=== PATIENT | male | born 1995 | race Caucasian/White ===

== ENCOUNTER 2017-02-07 11:51 | Emergency (ER) | payer BC ==
[2017-02-07 12:31] VITALS: BP 147/90
--- NOTE | 2017-02-07 13:09 | UC ---
Dental HPI - HPI Summary HPI Summary: On night, he noticed a sore under his tongue. Thursday morning he attempted to drain with a pin and razor blade with no success. He has used salt- water rinses with some relief. He also complains that he has had nasal congestion since July. He went to see a doctor that told him he had seasonal allergies, and prescribed him Arminda-D. He took it for a week and could no longer afford it. He states that it did relieve some of his symptoms at the time. - History of Current Complaint Chief Complaint: UCDentalProblem Stated Complaint: ABCESS ON TONGUE Hx Obtained From: Patient Onset/Duration: Lasting Days Severity: Mild Aggravating: Nothing Alleviating: Other (see comments) - salt-water rinses - Allergies/Home Medications Allergies/Adverse Reactions: Allergies Allergy/AdvReac Type Severity Reaction Status Date / Time No Known Allergies Allergy Verified 10/21/16 16:51 PMH/Surg Hx/FS Hx/Imm Hx Previously Healthy: Yes Endocrine History Of: Denies: Diabetes, Thyroid Disease Cardiovascular History Of: Denies: Cardiac Disorders, Hypertension Respiratory History Of: Denies: COPD, Asthma GI/ History Of: Denies: Ulcer - Surgical History Surgical History: None - Family History Known Family History: Positive: Hypertension, Diabetes - aunt - Social History Lives: With Family Alcohol Use: Weekly Alcohol Amount: weekends Substance Use Type: None Smoking Status (MU): Heavy Every Day Tobacco Smoker Type: Cigarettes, eCigarettes Amount Used/How Often: 1/2 ppd - Immunization History Most Recent Influenza Vaccination: none Review of Systems Constitutional: Negative Skin: Negative Eyes: Negative ENT: Nasal Discharge - nasal congestion, Other - complains of sore under his tongue Respiratory: Negative Cardiovascular: Negative Gastrointestinal: Negative Genitourinary: Negative Motor: Negative Neurovascular: Negative Musculoskeletal: Negative Neurological: Negative Psychological: Negative All Other Systems Reviewed And Are Negative: Yes Physical Exam Triage Information Reviewed: Yes Appearance: Well-Appearing, No Pain Distress, Well-Nourished Vital Signs: Initial Vital Signs Temp 98.1 F 02/07/17 12:22 Pulse 73 02/07/17 12:22 Resp 18 02/07/17 12:22 BP 147/90 02/07/17 12:22 Pulse Ox 100 02/07/17 12:22 Vital Signs Reviewed: Yes Eye Exam: Normal Eyes: Positive: Conjunctiva Clear ENT: Positive: Pharynx normal. Negative: Nasal congestion, Nasal drainage, Tonsillar swelling, Tonsillar exudate Dental Exam: Other Dental: Positive: Other: - Small, whitish spot under tongue. No pain with palpation. No drainage. Neck exam: Normal Neck: Positive: Supple, Nontender Respiratory Exam: Normal Respiratory: Positive: Chest non-tender, Lungs clear, Normal breath sounds, No respiratory distress Cardiovascular Exam: Normal Cardiovascular: Positive: RRR, No Murmur Musculoskeletal Exam: Normal Neurological Exam: Normal Neurological: Positive: Alert Psychological Exam: Normal Skin Exam: Normal Dental Complaint Course/Dx - Course Course Of Treatment: Peridex rinse twice a day. Continue warm salt-water rinses. Zyrtec for complaints of nasal congestion. - Differential Dx/Diagnosis Differential Diagnosis/Dx: Other - Abscess Provider Diagnoses: Canker sore Discharge - Discharge Plan Condition: Stable Disposition: HOME Prescriptions: Cetirizine* [ZyrTEC 10 MG TAB*] 10 mg PO DAILY #30 tab Chlorhexidine MW 0.12% 473ML* [Peridex Mouth Wash 0.12%*] 15 ml SWISH SPIT BID # 1 btl Patient Education Materials: Canker Sores (ED) Print Language: ALBANIAN Referrals: No Primary Care Phys,NOPCP [Primary Care Provider] - Additional Instructions: This is most likely a canker sore. We will have the patient do a Peridex mouth rinse twice a day. Instructed to not irritate the area or attempt to remove. Warm salt water rinses are also encouraged. For his complaints of nasal congestion we will try Zyrtec.
== END 2017-02-07 13:07 | disposition home or self-care (01) ==
LOC: UCEAST 11:51
DX: K12.0 Recurrent oral aphthae (principal); R03.0 Elevated blood-pressure reading, without diagnosis of hypertension; F17.210 Nicotine dependence, cigarettes, uncomplicated
CPT/HCPCS: 99212; G0463

== ENCOUNTER → 2019-08-12 | Day surgery (SDC) | payer BC ==
[~2019-08-12] MED LIST: Acetaminophen TAB* 325 MG ONE; Acetaminophen TAB* 325 MG PO ONE; Bacitracin OINTMENT* 0.5% 0.5 oz TUBE ONE; Buffered Lidocaine 1% SYRIN* 1 ML/SYRINGE INTRADERM ONE; Dexamethasone IV* 4 MG/ML 1 ML (4 MG) ONE; DiMENhydriNATE IV* 50 MG/ML VIAL IV PUSH PRN; Famotidine IV* 10 MG/ML 2 ML (20 mg) IV ONE; Famotidine IV* 10 MG/ML 2 ML (20 mg) ONE; Gabapentin CAP(*) 400 MG PO ONE; Ketorolac INJ* 30 MG/ML 1 ML VIAL ONE; Lactated Ringers 1000 ML Bag* 1,000 ML IV SCH; Levalbuterol 0.63MG/3ML NEB* UNIT OF USE INH PRN; Lidocaine 1% w EPI 1:100,000* MDV 20 ML VIAL ONE; Lidocaine 2% PF * 5 ML VIAL ONE; Lidocaine 4% TOPICAL* 50 ML TOP.SOLN ONE; Midazolam* 1 MG/ML 2 ML VIAL (2 MG) ONE; Naloxone* 0.4 MG/ML 1 ML VIAL IV PRN; Ondansetron INJ* 2 MG/ML VIAL IV PRN; Ondansetron INJ* 2 MG/ML VIAL ONE; Oxymetazoline 0.05% NASAL SPR* 15 ML BTL ONE; PROCHLORPERAZINE INJ 5 MG/ML 2 ML VIAL IV PRN; Propofol* 10 MG/ML 20 ML BTL ONE; fentaNYL* 50 MCG/ML 2 ML VIAL (100 MCG VIAL) IV PRN; fentaNYL* 50 MCG/ML 2 ML VIAL (100 MCG VIAL) ONE
[2019-08-12 14:02] VITALS: BP 141/95
--- NOTE | 2019-08-12 21:24 | OP ---
DATE OF OPERATION: 08/12/19 - [facility] DATE OF : [birth year] SURGEON: Taj Alonso MD DROP FORGER: None. ANESTHESIA: General. PRE-OP DIAGNOSIS: Bilateral inferior turbinate hypertrophy. POST-OP DIAGNOSIS: Bilateral inferior turbinate hypertrophy. OPERATIVE PROCEDURE: Bilateral inferior turbinate reduction. ESTIMATED BLOOD LOSS: Negligible. INDICATIONS: This is a 24-year-old male with a 3-year history of severe nasal airway obstruction refractory to medical management. DESCRIPTION OF PROCEDURE: On 08/12/19, the patient was brought to the operating room. General anesthesia was induced and an LMA was placed. The patient was draped. A time-out was performed. Pledgets soaked with Afrin and lidocaine were placed into both nasal cavities. Once adequate time had been allotted for vasoconstriction, the inferior turbinates were then infiltrated with approximately 3 cc of 1% lidocaine with 1:100,000 epinephrine each. The turbinates were then infractured using a Vale elevator. Multiple passes were made through each turbinate using the Elmed bipolar device. The turbinates were then outfractured. There was minimal bleeding for the procedure. A drip pad was applied. The patient was then extubated and delivered to the PACU in stable condition. [id number]/[facility] #: [id number] MTDD
== END | disposition home or self-care (01) ==
LOC: OR 10:08
PROVIDERS: ATTEND Otolaryngology
DX: J34.3 Hypertrophy of nasal turbinates (principal); R09.81 Nasal congestion; I10 Essential (primary) hypertension; F17.210 Nicotine dependence, cigarettes, uncomplicated; K21.9 Gastro-esophageal reflux disease without esophagitis
CPT/HCPCS: A9270-GY; J1100; J1885; J2250; J2405; J2704; J3010

== ENCOUNTER 2019-10-23 18:57 | Emergency (ER) | payer BC ==
--- OUTSIDE RECORDS SUMMARY | 2019-10-23 19:26 | XMS REPORT | Continuity of Care Document ---
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 Problems Active Problems Provider Date Essential hypertension Taj Alonso MD Onset: 04/15/2019 Social History Type Date Description Comments Sex Unknown Tobacco Use Start: Unknown Current Cigarette Smoker 1/2 Pack 10 years+ Daily Tobacco Use Start: Unknown Never Smoked Cigars Tobacco Use Start: Unknown Never Smoked A Pipe Smokeless Tobacco Current Smokeless Tobacco User, Uses Eight Times Daily ETOH Use other Tobacco Use Start: Unknown Patient is a current smoker, smokes every day Smoking Status Reviewed: 07/27/19 Patient is a current smoker, smokes every day Allergies, Adverse Reactions, Alerts Description No Known Drug Allergies Medications Active Medications SIG Qnty Indications Ordering Provider Date Fluticasone Propionate 2 sprays each 16gm Taj Alonso, 04/15/2019 nostril daily 50mcg/Act Suspension Omeprazole 1 tab by mouth Unknown 20mg Capsules daily DR Amlodipine Besylate 1 1/2 tabs by Unknown 5mg mouth every day Tablets Bupropion HCL ER (SR) 1 by mouth every Unknown day 150mg Tablets ER 12HR History Medications Amoxicillin/Clavulanate 1 by mouth 20tabs Taj Martinez 08/19/2019 - Potassium twice a day MD Gavin 09/15/2019 875-125mg Tablets for 10 days Immunizations Description No Information Available Vital Signs Date Vital Result Comment 10/18/2019 9:56am Weight 228.00 lb Weight 103.421 kg Height 71 inches 5'11" Height in cm's 180.3 cm BMI (Body Mass Index) 31.8 kg/m2 09/16/2019 8:56am Weight 228.00 lb Weight 103.421 kg Height 71 inches 5'11" Height in cm's 180.3 cm BMI (Body Mass Index) 31.8 kg/m2 Results Description No Information Available Procedures Date Code Description Status 08/12/2019 82595 Cautery Of Turbinates/Intramural Completed Medical Devices Description No Information Available Encounters Type Date Location Provider Dx Diagnosis Office Visit 08/19/2019 [place] Taj Martinez J34.3 Hypertrophy of 9:00a 11/30/07 MD Gavin nasal turbinates 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 Office Visit 06/28/2019 3:15p [place] Taj Martinez R09.81 Nasal congestion 11/30/07 MD Gavin J34.3 Hypertrophy of nasal turbinates Office Visit 05/27/2019 9:30a [place] 11/30/07 Asia Artis R09.81 Nasal congestion AMY Stauffer J31.0 Chronic rhinitis F17.210 Nicotine dependence, cigarettes, uncomplicated Assessments Date Code Description Provider 10/18/2019 R09.81 Nasal congestion Taj Alonso MD 10/18/2019 J34.3 Hypertrophy of nasal turbinates Taj Alonso MD 09/16/2019 J34.3 Hypertrophy of nasal turbinates Taj Alonso MD 08/19/2019 J34.3 Hypertrophy of nasal turbinates Taj Alonso MD 08/19/2019 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 Taj Alonso MD 08/12/2019 J34.3 Hypertrophy of nasal turbinates Taj Alonso MD 07/29/2019 R09.81 Nasal congestion Asia Stauffer PA-C 07/29/2019 J34.3 Hypertrophy of nasal turbinates Asia Stauffer PA-C 06/28/2019 R09.81 Nasal congestion Taj Alonso MD 06/28/2019 J34.3 Hypertrophy of nasal turbinates Taj Alonso MD 05/27/2019 R09.81 Nasal congestion Asia Stauffer PA-C 05/27/2019 J31.0 Chronic rhinitis Asia Stauffer PA-C 05/27/2019 F17.210 Nicotine dependence, cigarettes, Asia Stauffer PA-C uncomplicated Plan of Treatment No Information Available Functional Status Description No Information Available Mental Status Description No Information Available Referrals Description No Information Available
--- OUTSIDE RECORDS SUMMARY | 2019-10-23 19:26 | XMS REPORT | Continuity of Care Document ---
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 Problems Active Problems Provider Date Essential hypertension [...] Available Vital Signs Date Vital Result Comment 09/16/2019 8:56am Weight 228.00 lb Weight 103.421 kg Height 71 inches 5'11" Height in cm's 180.3 cm BMI (Body Mass Index) 31.8 kg/m2 07/29/2019 8:37am BP Systolic 135 mmHg BP Diastolic 97 mmHg Heart Rate 79 /min Respiratory Rate 18 /min Weight 228.00 lb Weight 103.421 kg Height 71 inches 5'11" Height in cm's 180.3 cm BMI (Body Mass Index) 31.8 kg/m2 Results Description No Information Available Procedures Date Code Description Status 08/12/2019 73402 Cautery Of Turbinates/Intramural Completed 04/15/2019 86427 Nasal Endoscopy, Diagnostic Completed Medical Devices Description No Information Available Encounters Type Date Location Provider Dx Diagnosis Office Visit 08/19/2019 [place],[facility] Taj Martinez J34.3 Hypertrophy of 9:00a 11/30/07 MD Gavin nasal turbinates 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 Office Visit 06/28/2019 3:15p [place],[facility] Taj Martinez R09.81 Nasal congestion 11/30/07 MD Gavin J34.3 Hypertrophy of nasal turbinates Office Visit 05/27/2019 9:30a [place],[facility] 11/30/07 Asia Artis R09.81 Nasal congestion AMY Stauffer J31.0 Chronic rhinitis F17.210 Nicotine dependence, cigarettes, uncomplicated Office Visit 04/15/2019 9:45a [place],[facility] Taj Martinez R09.81 Nasal congestion 11/30/07 MD Gavin J31.0 Chronic rhinitis Assessments Date Code Description Provider 09/16/2019 J34.3 Hypertrophy of nasal turbinates Taj [...] Nicotine dependence, cigarettes, Asia Stauffer PA-C uncomplicated 04/15/2019 R09.81 Nasal congestion Taj Alonso MD 04/15/2019 J31.0 Chronic rhinitis Taj Alonso MD Plan of Treatment Future Appointment(s):10/18/2019 9:00 am - Taj Alonso MD at [place], After 11/30/809 - Taj Alonso MDJ34.3 Hypertrophy of nasal turbinates Functional Status Description No Information Available Mental Status Description No Information Available Referrals Description No Information Available
[2019-10-23 19:41] VITALS: BP 136/88
--- NOTE | 2019-10-23 19:50 | UC ---
Dental HPI - HPI Summary HPI Summary: Patient is 24 year old male , who present today to the urgent care with dental pain since yesterday. He reports pain in the right lower molar area that he noticed first time while eating dinner last night. He reports has had these episodes in the past and response to antibiotic treatment. He has not seen the dentist yet but plans to see him in near future. Denies any fevers or swelling - History of Current Complaint Chief Complaint: UCDentalProblem Stated Complaint: DENTAL PAIN Time Seen by Provider: 10/23/19 19:41 Hx Obtained From: Patient Pain Intensity: 4 - Allergies/Home Medications Allergies/Adverse Reactions: Allergies Allergy/AdvReac Type Severity Reaction Status Date / Time No Known Allergies Allergy Verified 08/12/19 10:52 Home Medications: Home Medications Acetaminophen TAB* [Tylenol TAB*] 650 mg PO Q4H PRN 10/23/19 [History Confirmed 10/23/19] Fluticasone NASAL SPRAY 50MCG* [Flonase NASAL SPRAY 50MCG*] 2 spray BOTH NARES DAILY 10/23/19 [History Confirmed 10/23/19] Ibuprofen TAB* [Advil TAB*] 800 mg PO Q6H PRN 10/23/19 [History Confirmed ] PMH/Surg Hx/FS Hx/Imm Hx - Additional Past Medical History Additional PMH: Past Medical History : Hypertension, GERD Past Surgical History: Nasal surgery Family History : non contributory Social History : Occasional alcohol, daily smoker, chews tobacco, no drug use. Previously Healthy: Yes - Surgical History Surgical History: Yes Surgery Procedure, Year, and Place: nasal sx - Family History Known Family History: Positive: Hypertension, Diabetes - aunt, Non-Contributory - Social History Alcohol Use: Occasionally Alcohol Amount: 1+MONTH AGO-6 PACK PER DAY- NOW 1-2 IN THE PAST 6 DAYS Substance Use Type: None Smoking Status (MU): Heavy Every Day Tobacco Smoker Type: Cigarettes, eCigarettes Amount Used/How Often: CHEW-1 CAN PER DAY X 1 YEAR//1/4 PDD X 10 YEARS+ Length of Time of Smoking/Using Tobacco: 15 yrs Have You Smoked in the Last Year: No - Immunization History Most Recent Influenza Vaccination: none Review of Systems All Other Systems Reviewed And Are Negative: Yes Constitutional: Positive: Negative Skin: Positive: Negative Eyes: Positive: Negative ENT: Positive: Dental Pain - Right third molar Respiratory: Positive: Negative Cardiovascular: Positive: Negative Gastrointestinal: Positive: Negative Genitourinary: Positive: Negative Motor: Positive: Negative Neurovascular: Positive: Negative Musculoskeletal: Positive: Negative Neurological: Positive: Negative Psychological: Positive: Negative Is Patient Immunocompromised?: No Physical Exam - Summary Physical Exam Summary: Vital Signs Reviewed: Yes A+Ox3, no distress Eyes: Conjunctiva Clear ENT: Hearing grossly normal Oral cavity: Impacted third molar on the right lower jaw, caries, tender to percussion. Some gingivitis noted in that area. No gingival abscess noted. neck: supple Respiratory: Positive: No respiratory distress, No accessory muscle use Cardiovascular: skin color reflect adequate perfusion Musculoskeletal Exam: ESCALERA x 4 without difficulty Neurological: Positive: Alert, ambulatory without difficulty Psychological: Positive: Normal Response To Family Skin: Positive: no rash, no ecchymosis Triage Information Reviewed: Yes Vital Signs: Initial Vital Signs Temp 98.2 F 10/23/19 19:37 Pulse 98 10/23/19 19:37 Resp 18 10/23/19 19:37 BP 136/88 10/23/19 19:37 Pulse Ox 99 10/23/19 19:37 Vital Signs Reviewed: Yes Dental Complaint Course/Dx - Course Course Of Treatment: During the visit today, we discussed the findings- impacted third molar with infection and caries. He was given first toes of Augmentin here and I will prescribe rest of the medication to the pharmacy. Discussed with him the need to see the dentist as soon as possible for definitive management Patient expressed understanding . - Differential Dx/Diagnosis Differential Diagnosis/Dx: Dental Caries, Peridontic Disease Provider Diagnosis: Impacted third molar tooth, Infected dental carries Discharge ED - Sign-Out/Discharge Documenting (check all that apply): Patient Departure All imaging exams completed and their final reports reviewed: No Studies - Discharge Plan Condition: Stable Disposition: HOME Prescriptions: Amoxicillin/Clavulanate TAB* [Augmentin TAB 875*] 875 mg PO BID 10 Days #19 tab Patient Education Materials: Toothache (ED) Referrals: No Primary Care Phys,NOPCP [Primary Care Provider] - Additional Instructions: Please start taking the medication as prescribed to the pharmacy . Follow up with dentist as soon as possible for definitive management Patients blood pressure slightly high in Urgent care today , plan follow up with PCP for better control Return to Urgent care / ER if symptoms get worse. - Billing Disposition and Condition Condition: STABLE Disposition: Home
[2019-10-23] MEDS ORDERED: Amoxicillin/Clavulanate TAB* 875 MG PO ONE (19:55)
== END 2019-10-23 20:05 | disposition home or self-care (01) ==
LOC: UCCORT 18:57
DX: K01.1 Impacted teeth (principal); K04.7 Periapical abscess without sinus; I10 Essential (primary) hypertension; F17.210 Nicotine dependence, cigarettes, uncomplicated
CPT/HCPCS: 99212; A9270-GY; G0463

== ENCOUNTER 2020-03-11 23:21 | Observation (INO) | payer BC ==
[2020-03-11] MEDS ORDERED: NS 0.9% 1000 ML** 1,000 ML IV ONE (23:33)
[2020-03-11] MEDS ORDERED: Acetaminophen TAB* 325 MG PO ONE (23:34)
--- NOTE | 2020-03-11 23:50 | ED ---
Abdominal Pain/Male - HPI Summary HPI Summary: 24 year old male with significant history of hypertension presents to the emergency Department today with chief complaint of 6 out of 10 right upper quadrant abdominal pain which radiates to his testicles which began approximately 1500 this date after eating a snack. Patient states he has taken [place], and magnesium citrate to relieve his pain. Patient states he also has a fever although he is afebrile in the emergency department. Patient denies nausea, vomiting, diarrhea, blood pressure, penile discharge. Patient denies modifying factors. Patient is otherwise well and denies chest pain, rash , nausea, vomiting, diarrhea, headache, cough, nasal congestion. Patient denies personal and family history of kidney stones, gallstones however he states his brother had testicular torsion. - History of Current Complaint Chief Complaint: EDAbdPain Stated Complaint: ABD PAIN PER PT Time Seen by Provider: 03/11/20 23:33 Hx Obtained From: Patient Onset/Duration: Gradual Onset Timing: Constant Severity Initially: Moderate Severity Currently: Moderate Pain Intensity: 6 Pain Scale Used: 0-10 Numeric Location: Discrete At: RUQ Radiates: Yes Radiates to: Inguinal Character: Sharp, Cramping Aggravating Factor(s): Nothing Alleviating Factor(s): Nothing Associated Signs And Symptoms: Positive: Decreased Appetite. Negative: Cough, Chest Pain, Back Pain, Urinary Symptoms, Nausea, Vomiting, Diarrhea, Penile Discharge - Allergies/Home Medications Allergies/Adverse Reactions: Allergies Allergy/AdvReac Type Severity Reaction Status Date / Time No Known Allergies Allergy Verified 03/11/20 23:24 Home Medications: Home Medications Omeprazole CAP (NF) [Prilosec CAP* 20 MG] 20 mg PO QAM 08/05/19 [History Confirmed 10/23/19] amLODIPine TAB* [Norvasc 5 mg TAB*] 1.5 tab PO QAM 08/05/19 [History Confirmed 10/23/19] Acetaminophen TAB* [Tylenol TAB*] 650 mg PO Q4H PRN 10/23/19 [History Confirmed 10/23/19] Amoxicillin/Clavulanate TAB* [Augmentin TAB 875*] 875 mg PO BID 10 Days #19 tab 10/23/19 [Rx] Fluticasone NASAL SPRAY 50MCG* [Flonase NASAL SPRAY 50MCG*] 2 spray BOTH NARES DAILY 10/23/19 [History Confirmed 10/23/19] Ibuprofen TAB* [Advil TAB*] 800 mg PO Q6H PRN 10/23/19 [History Confirmed ] PMH/Surg Hx/FS Hx/Imm Hx Endocrine/Hematology History: Denies: Hx Diabetes, Hx Thyroid Disease Cardiovascular History: Reports: Hx Hypertension - ON MEDICATION FOR Denies: Hx Pacemaker/ICD, Other Cardiovascular Problems/Disorders Respiratory History: Denies: Hx Asthma, Hx Chronic Obstructive Pulmonary Disease (COPD), Other Respiratory Problems/Disorders GI History: Reports: Hx Gastroesophageal Reflux Disease - ON MEDICATION Denies: Hx Ulcer, Other GI Disorders History: Denies: Other Problems/Disorders Musculoskeletal History: Denies: Other Musculoskeletal History Sensory History: Denies: Hx Contacts or Glasses, Hx Hearing Aid Opthamlomology History: Denies: Hx Contacts or Glasses Neurological History: Denies: Other Neuro Impairments/Disorders Psychiatric History: Reports: Hx Anxiety - NO MEDICATION FOR- - Surgical History Surgery Procedure, Year, and Place: nasal sx Infectious Disease History: No Infectious Disease History: Denies: Hx Hepatitis, Hx Human Immunodeficiency Virus (HIV), Traveled Outside the in Last 30 Days - Family History Known Family History: Positive: Hypertension, Diabetes - aunt, Non-Contributory - Social History Alcohol Use: None Alcohol Amount: 1+MONTH AGO-6 PACK PER DAY- NOW 1-2 IN THE PAST 6 DAYS Substance Use Type: Reports: None Smoking Status (MU): Light Every Day Tobacco Smoker Type: Cigarettes, eCigarettes Amount Used/How Often: CHEW-1 CAN PER DAY X 1 YEAR//1/4 PDD X 10 YEARS+ Length of Time of Smoking/Using Tobacco: 15 yrs Have You Smoked in the Last Year: No Review of Systems Constitutional: Negative Eyes: Negative ENT: Negative Cardiovascular: Negative Respiratory: Negative Positive: Abdominal Pain. Negative: Vomiting, Diarrhea, Nausea Genitourinary: Negative Musculoskeletal: Negative Skin: Negative Neurological/Mental Status: Negative Psychological: Normal All Other Systems Reviewed And Are Negative: Yes Physical Exam - Summary Physical Exam Summary: Patient in no acute distress. Inspection of the abdomen reveals no ecchymosis or masses. Auscultation reveals normoactive bowel sounds. Patient has pain with palpation of the right upper and lower quadrant. Patient has pain in McBurney's point. Negative Rovsing, obturator sign. Negative Harvey sign. No guarding, rigidity, rebound tenderness. Triage Information Reviewed: Yes Vital Signs On Initial Exam: Initial Vitals Temp Pulse Resp BP Pulse Ox 100.5 F 103 15 138/115 99 03/11/20 23:22 03/11/20 23:22 03/11/20 23:22 03/11/20 23:22 03/11/20 23:22 Vital Signs Reviewed: Yes Appearance: Positive: Well-Appearing, No Pain Distress, Well-Nourished Skin: Positive: Warm, Skin Color Reflects Adequate Perfusion Eyes: Positive: EOMI, PARISH ENT: Positive: Hearing grossly normal Respiratory/Lung Sounds: Positive: Clear to Auscultation, Breath Sounds Present Cardiovascular: Positive: RRR, S1, S2 Abdomen Description: Positive: Soft. Negative: Nontender, CVA Tenderness (R), CVA Tenderness (L), Distended, Guarding, McBurney's Point Tenderness Bowel Sounds: Positive: Present Musculoskeletal: Positive: Strength/ROM Intact Neurological: Positive: Sensory/Motor Intact, Alert, Oriented to Person Place, Time, Normal Gait, Facial Symmetry, Speech Normal Psychiatric: Positive: Normal, Affect/Mood Appropriate AVPU Assessment: Alert Procedures - Sedation Patient Received Moderate/Deep Sedation with Procedure: No Diagnostics - Vital Signs Vital Signs Temp Pulse Resp BP Pulse Ox 03/11/20 23:22 100.5 F 103 15 138/115 99 - Laboratory Result Diagrams: 03/12/20 00:00 03/12/20 00:00 Lab Statement: Any lab studies that have been ordered have been reviewed, and results considered in the medical decision making process. Abdominal Pain Male Course/Dx - Course Course Of Treatment: Patient was evaluated in the emergency department today for abdominal pain. Vitals noted stable. Patient afebrile. Laboratory studies returned showing leukocytosis with white blood cell count of 15.3 with left shift. CRP is mildly elevated at 20.9. There are no significant electrolyte abnormalities. No anemia noted. Lipase is within normal limits. Urinalysis returned showing 1+ blood. CT of the abdomen pelvis with contrast shows acute appendicitis changes. Mild to moderate adjacent right lower quadrant inflammation. No abscess. No bowel section. No free air. No hydronephrosis. General surgeon, Dr. Pace was consulted who agreed to admit the patient for acute appendicitis. Patient was started on Zosyn and placed nothing by mouth. Patient admitted to [facility]. - Diagnoses Differential Diagnosis/HQI/PQRI: Appendicitis, Bowel Obstruction, Constipation, Gall Bladder Disease, Pancreatitis, Testicular Torsion, Ureteral Stone, Urinary Tract Infection Provider Diagnoses: Appendicitis - Provider Notifications Discussed Care Of Patient With: Jimmy Pace - begin patient on Zosyn and admitted to [facility] for surgical intervention of appendicitis. Time Discussed With Above Provider: 02:46 Instructed by Provider To: Admit As Inpatient Admit/Transition Orders Completed By ED Provider: No Discharge ED - Sign-Out/Discharge Documenting (check all that apply): Patient Departure - Discharge Plan Condition: Stable Disposition: [facility] Referrals: No Primary Care Phys,NOPCP [Primary Care Provider] - - Billing Disposition and Condition Condition: STABLE Disposition: Admitted to [facility]
[2020-03-12 00:13] LABS: ABS Basophils 0.1 10^3/ul (0-0.2); ABS Eosinophils 0.2 10^3/ul (0-0.6); ABS Lymphocytes 2.1 10^3/ul (1.0-4.8); ABS Monocytes 1.1 10^3/ul (0-0.8); ABS Neutrophils 11.8 10^3/ul (1.5-7.7); Eosinophil % 1.4 %; Hematocrit 44 % (42-52); Hemoglobin 15.3 g/dL (14.0-18.0); Lymphocyte % 13.7 %; Mean Corpuscular HGB Conc 35 g/dL (31-36); Mean Corpuscular Hemoglobin 30 pg (27-31); Mean Corpuscular Volume 84 fL (80-94); Mean Platelet Volume 7.9 fL (7.4-10.4); Platelet Count 369 10^3/uL (150-450); Red Blood Count 5.19 10^6 /uL (4.18-5.48); Red Cell Distribution Width 13 % (10-15); White Blood Count 15.3 10^3/uL (3.5-10.8)
[2020-03-12 00:29] LABS: Albumin 4.5 g/dL (3.2-5.2); Albumin/Globulin Ratio 1.5 (1-3); BUN/Creatinine Ratio 12.1 (8-20); C Reactive Protein 20.91 mg/L (<8.01); Calcium 9.5 mg/dL (8.6-10.3); EGFR African American 121.9 (>60); EGFR Non-African American 100.7 (>60); Globulin 3.1 g/dL (2-4); Potassium 3.6 mmol/L (3.5-5.0); Total Bilirubin 0.5 mg/dL (0.2-1.0); Total Protein 7.6 g/dL (6.4-8.9)
[2020-03-12] MEDS ORDERED: Iohexol 300* (CONTRAST) 10 ML SDV IV ONE (00:33)
[2020-03-12 00:39] LABS: Urine Appearance Clear; Urine Bilirubin Negative (Negative); Urine Blood 1+ (Negative); Urine Color Yellow; Urine Glucose Negative (Negative); Urine Ketones Negative (Negative); Urine Nitrite Negative (Negative); Urine Protein Negative (Negative); Urine Specific Gravity 1.012 (1.010-1.030); Urine Urobilinogen Negative (Negative)
[2020-03-12 00:41] LABS: Urine Bacteria Absent (Absent); Urine Red Blood Cell 1+(3-5/hpf) (Absent); Urine White Blood Cell Absent (Absent)
[2020-03-12] MEDS ORDERED: Piperacillin/Tazobac ADVAN(*) 3.375 GM in NS 0.9% 100 ML* 100 ML IVPB ONE (02:44)
[2020-03-12] MEDS ORDERED: Ondansetron INJ* 2 MG/ML VIAL IV PRN ×2 (02:50→14:59)
[2020-03-12] MEDS ORDERED: HYDROmorphone INJ* 0.5 MG/0.5 ML SYRINGE IV SLOW PU PRN (02:50)
[2020-03-12] MEDS ORDERED: NS 0.9% 1000 ML** 1,000 ML IV ONE (02:53)
[2020-03-12 02:55] LABS: INR 1.07 (0.82-1.09)
[2020-03-12] MEDS ORDERED: Zosyn 3.375 GM IV - ED ONCE IVPB ONE ×2 (03:00)
[2020-03-12] MEDS ORDERED: NS 0.9% 1000 ML** 1,000 ML IV SCH (03:00)
[2020-03-12] MEDS ORDERED: Piperacillin/Tazobactam VIAL*) 3.375 GM in NS 0.9% 100 ML* 100 ML IVPB SCH (07:30)
--- NOTE | 2020-03-12 08:27 | HP ---
H&P (Free Text) History and Physical: History and Physical- General Surgery CC: RLQ Abd pain x 1 day HPI: 24 yo M began with onset of RLQ abd pain yesterday morning. Around 1pm, he ate and subsequently felt an increase in pain and nausea. Took reba seltzer and laxative, which both did not relieve any symptoms. Has not eaten anything since and confirms lack of appetite, as well as subjective fevers. Loose BM this morning. Denies emesis, urinary changes, history of kidney stones or gallbladder disease, SOB, cough, chest pain. Surgical history: Nasal turbinate procedure 2019. Denies problems ever with anesthesia, bleeding or clotting. Social history: 5 cigarettes/ day for 11 years, 1 pack of chewing tobacco for 2 years, rare alcohol use, no drug use otherwise. Family history: Noncontributory- denies family history of bleeding or clotting. Past medical history: HTN, GERD. Allergies Allergy/AdvReac Type Severity Reaction Status Date / Time No Known Allergies Allergy Verified 03/11/20 23:24 Home Medications Medication Instructions Recorded Confirmed Type Acetaminophen TAB* [Tylenol TAB*] 650 mg PO Q4H PRN 10/23/19 03/12/20 History Amlodipine Besylate [Norvasc] 10 mg PO DAILY 03/12/20 03/12/20 History Famotidine TAB 40 MG(NF) [Pepcid 40 mg PO DAILY 03/12/20 03/12/20 History TAB 40 MG(NF)] ROS: 12 point ROS negative except as otherwise stated above Temp Pulse Resp BP Pulse Ox 98.4 F 78 16 139/80 99 03/12/20 07:34 03/12/20 07:34 03/12/20 07:34 03/12/20 07:34 03/12/20 07:34 Laboratory Last Values WBC 15.3 10^3/uL (3.5-10.8) H 03/12/20 00:00 RBC 5.19 10^6 /uL (4.18-5.48) 03/12/20 00:00 Hgb 15.3 g/dL (14.0-18.0) 03/12/20 00:00 Hct 44 % (42-52) 03/12/20 00:00 MCV 84 fL (80-94) 03/12/20 00:00 MCH 30 pg (27-31) 03/12/20 00:00 MCHC 35 g/dL (31-36) 03/12/20 00:00 RDW 13 % (10-15) 03/12/20 00:00 Plt Count 369 10^3/uL (150-450) 03/12/20 00:00 MPV 7.9 fL (7.4-10.4) 03/12/20 00:00 Neut % (Auto) 77.1 % 03/12/20 00:00 Lymph % (Auto) 13.7 % 03/12/20 00:00 [place] % (Auto) 7.4 % 03/12/20 00:00 Eos % (Auto) 1.4 % 03/12/20 00:00 Baso % (Auto) 0.4 % 03/12/20 00:00 Absolute Neuts (auto) 11.8 10^3/ul (1.5-7.7) H 03/12/20 00:00 Absolute Lymphs (auto) 2.1 10^3/ul (1.0-4.8) 03/12/20 00:00 Absolute Monos (auto) 1.1 10^3/ul (0-0.8) H 03/12/20 00:00 Absolute Eos (auto) 0.2 10^3/ul (0-0.6) 03/12/20 00:00 Absolute Basos (auto) 0.1 10^3/ul (0-0.2) 03/12/20 00:00 Absolute Nucleated RBC 0.0 10^3/ul 03/12/20 00:00 Nucleated RBC % 0.0 03/12/20 00:00 INR (Anticoag Therapy) 1.07 (0.82-1.09) 03/12/20 00:00 APTT 34.0 seconds (26.0-38.0) 03/12/20 00:00 Sodium 137 mmol/L (135-145) 03/12/20 00:00 Potassium 3.6 mmol/L (3.5-5.0) 03/12/20 00:00 Chloride 100 mmol/L (101-111) L 03/12/20 00:00 Carbon Dioxide 30 mmol/L (22-32) 03/12/20 00:00 Anion Gap 7 mmol/L (2-11) 03/12/20 00:00 BUN 11 mg/dL (6-24) 03/12/20 00:00 Creatinine 0.91 mg/dL (0.67-1.17) 03/12/20 00:00 Est GFR ( Amer) 121.9 (>60) 03/12/20 00:00 Est GFR (Non-Af Amer) 100.7 (>60) 03/12/20 00:00 BUN/Creatinine Ratio 12.1 (8-20) 03/12/20 00:00 Glucose 101 mg/dL (70-100) H 03/12/20 00:00 Calcium 9.5 mg/dL (8.6-10.3) 03/12/20 00:00 Total Bilirubin 0.50 mg/dL (0.2-1.0) 03/12/20 00:00 AST 27 U/L (13-39) 03/12/20 00:00 ALT 72 U/L (7-52) H 03/12/20 00:00 Alkaline Phosphatase 77 U/L (34-104) 03/12/20 00:00 C-Reactive Protein 20.91 mg/L (<8.01) H 03/12/20 00:00 Total Protein 7.6 g/dL (6.4-8.9) 03/12/20 00:00 Albumin 4.5 g/dL (3.2-5.2) 03/12/20 00:00 Globulin 3.1 g/dL (2-4) 03/12/20 00:00 Albumin/Globulin Ratio 1.5 (1-3) 03/12/20 00:00 Lipase 15 U/L (11.0-82.0) 03/12/20 00:00 Urine Color Yellow 03/12/20 00:00 Urine Appearance Clear 03/12/20 00:00 Urine pH 6.0 (5-9) 03/12/20 00:00 Ur Specific [place] 1.012 (1.010-1.030) 03/12/20 00:00 Urine Protein Negative (Negative) 03/12/20 00:00 Urine Ketones Negative (Negative) 03/12/20 00:00 Urine Blood 1+ (Negative) A 03/12/20 00:00 Urine Nitrate Negative (Negative) 03/12/20 00:00 Urine Bilirubin Negative (Negative) 03/12/20 00:00 Urine Urobilinogen Negative (Negative) 03/12/20 00:00 Ur Leukocyte Esterase Negative (Negative) 03/12/20 00:00 Urine WBC (Auto) Absent (Absent) 03/12/20 00:00 Urine RBC (Auto) 1+(3-5/hpf) (Absent) A 03/12/20 00:00 Urine Bacteria Absent (Absent) 03/12/20 00:00 Urine Glucose Negative (Negative) 03/12/20 00:00 PEX General: Alert, in NAD or discomfort. Integumentary: No rashes, jaundice, lesions, petechia. HEENT: Oropharynx clear. Nares patent. Trachea midline. PERRLA. Heart: RRR, no MRG. Lungs: CTAB, no WRR. ABD: BS present. Soft, nondistended. Tender in RLQ. No guarding or rebound tenderness. Negative vigil's sign. Extremities: Distal pulses intact bilaterally. No edema. Calves soft and nontender. CT abd/pelvis w: Acute appendicitis changes. Mild to moderate adjacent RLQ inflammation. No abscess. No bowel obstruction. No free air. No hydronephrosis. Assessment and plan: 24 yo M with acute appendicitis. Plan is for laparoscopic appendectomy today. Continue antibiotics and IV fluids. NPO.
[2020-03-12] MEDS ORDERED: ceFOXitin 2 GM IVPREMIX* 2 GM/50 ML BAG ONE (13:01)
[2020-03-12] MEDS ORDERED: Dexamethasone IV* 4 MG/ML 1 ML (4 MG) ONE (13:49)
[2020-03-12] MEDS ORDERED: Propofol* 10 MG/ML 20 ML BTL ONE (13:49)
[2020-03-12] MEDS ORDERED: Ondansetron INJ* 2 MG/ML VIAL ONE ×2 (13:49→16:35)
[2020-03-12] MEDS ORDERED: Lidocaine 2% PF * 5 ML VIAL ONE (13:49)
[2020-03-12] MEDS ORDERED: fentaNYL* 50 MCG/ML 2 ML VIAL (100 MCG VIAL) ONE (13:50)
[2020-03-12] MEDS ORDERED: Midazolam* 1 MG/ML 5 ML VIAL (5 MG) ONE (13:50)
[2020-03-12] MEDS ORDERED: Cisatracurium* 2 MG/ML MDV 5 ML ONE (13:50)
[2020-03-12] MEDS ORDERED: Bupivacaine 0.25% EPI 200,000* 30 ML SDV ONE (14:04)
[2020-03-12] MEDS ORDERED: Naloxone* 0.4 MG/ML 1 ML VIAL IV PRN (14:59)
[2020-03-12] MEDS ORDERED: fentaNYL* 50 MCG/ML 2 ML VIAL (100 MCG VIAL) IV PRN (14:59)
[2020-03-12] MEDS ORDERED: HYDROmorphone INJ1* 1 MG/ML SYRINGE IV PRN (14:59)
[2020-03-12] MEDS ORDERED: Ketorolac INJ* 30 MG/ML 1 ML VIAL ONE (15:01)
[2020-03-12] MEDS ORDERED: Neostigmine Methylsulfate* 1 MG/ML 10 ML VIAL (1 mg/ml) ONE (15:07)
[2020-03-12] MEDS ORDERED: Glycopyrrolate IV* 0.2 MG/ML 1 ML VIAL ONE (15:07)
--- NOTE | 2020-03-12 15:39 | BRIEFOPN ---
Brief Operative/Procedure Note - Operation Details Pre-Op Diagnosis: Acute appendicitis Post-Op Diagnosis: Acute appendicitis Procedures: Laparoscopic appendectomy Surgeon(s)/Proceduralists: Dr. Kim. Assist: NAVYA Moore Anesthesia: GETA Estimated Blood Loss: <20cc Findings: As above Specimen(s)/Culture(s) Description: Appendix Complications: None Miscellaneous Procedure Notes: None
[2020-03-12] MEDS ORDERED: oxyCODONE/Acetamin 5/325 MG* TAB ONE (16:29)
[2020-03-12 16:47] VITALS: BP 145/92
--- NOTE | 2020-03-12 17:39 | OP ---
OPERATIVE REPORT: DATE OF OPERATION: 03/12/20 - Inpatient, [facility]SU 346-02 DATE OF : 89 SURGEON: Aniket Kim MD CLINICAL BIOCHEMICAL GENETICIST: NAVYA Chiang ANESTHESIOLOGIST: Jerod Wilkes MD ANESTHESIA: General endotracheal. PRE-OP DIAGNOSIS: Acute appendicitis. POST-OP DIAGNOSIS: Acute appendicitis. OPERATIVE PROCEDURE: Laparoscopic appendectomy. ESTIMATED BLOOD LOSS: Less than 10 mL. IV FLUIDS: Crystalloid. SPECIMEN: Appendix. DRAINS: None. COMPLICATIONS: None. COUNTS: The instrument, needle, and sponge counts were correct. DESCRIPTION OF PROCEDURE: The patient was brought to the operating room and placed on the table supine. Sequential compression devices were placed on both lower extremities. General anesthesia was administered. His abdomen was prepped and draped in usual sterile fashion and time-out was performed. Local anesthetic was infiltrated into the skin and soft tissue prior to making each incision. Entry into the abdomen was through a transumbilical vertical incision using an open technique. After accessing the peritoneal cavity, carbon dioxide was insufflated through a 12-mm trocar to a pressure of 15 mmHg. Under direct visualization, 5-mm trocars were placed in the suprapubic midline and in the left lower quadrant. The inspection revealed the terminal ileum to have adhesions down in the pelvis and this was mobilized sharply in order to bring the appendix into view. The appendix also had some attachments to the retroperitoneum, which were divided elevating it and then using the Endo ELLE stapler with a 45-mm tena cartridge, the appendix and mesentery of the appendix were divided with a single firing at the base of the appendix. Staple lines were inspected, noted to be hemostatic and intact. The appendix was placed into an endoscopic retrieval bag and retrieved through the umbilical site. The ports were removed under direct visualization. Carbon dioxide was aspirated. Wounds were then closed using 0 Vicryl to approximate the umbilical fascia in a [id number] fashion. Skin incisions were closed with 4-0 Monocryl in a subcuticular fashion. DermaFlex was applied. The patient tolerated the procedure well, was extubated uneventfully, and transferred to Recovery in stable condition. [id number]/[facility] #: [id number] [facility]
== END 2020-03-12 17:10 | disposition home or self-care (01) ==
LOC: ED 23:21 → SSU 03-12 04:06 → INTOOBSV 03-12 04:06
PROVIDERS: ADMIT Surgery; ATTEND Surgery
DX: K35.80 Unspecified acute appendicitis (principal); R10.31 Right lower quadrant pain; I10 Essential (primary) hypertension; K21.9 Gastro-esophageal reflux disease without esophagitis; F41.9 Anxiety disorder, unspecified; F17.210 Nicotine dependence, cigarettes, uncomplicated; Z79.899 Other long term (current) drug therapy
CPT/HCPCS: 36415; 74177; 80053; 81003; 81015; 83690; 85025; 85610; 85730; 86140; 88304; 93005; 96361; 96365; 96375; 99283; A9270-GY; C1776; G0378; J0694; J1100; J1885; J2250; J2405; J2543; J2704; J2710; J3010; Q9967